=== PATIENT | female | born 1995 | race African-American/Black ===

== ENCOUNTER 2021-11-18 11:30 | Outpatient (RCR) | payer OTHER, SELFPAY ==
--- NOTE | 2021-10-27 11:13 | PTOPEVAL ---
PHYSICAL THERAPY EVALUATION AND PLAN OF CARE Thank you for referring Ladonna Jones to [facility].? The patient is scheduled to be seen for therapy? 2x/week for 4 weeks. Please review, sign, date and return this plan of care SENIA. I agree with and certify that the following plan of care is medically necessary. 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 Family She describes her story has having a difficult time exercising, having very little energy (could be lupus), she has a lot back of back pain ( stating that she has a upside down T - down the spine and across the bottom), and she has neuropathy in her left UE with a lot of numbness and tingling. back pain: sharp pains, burning especially when laying on her stomach -- has been trying to sleep on her sides. Self Report Pain Assessment Back Reported Pain Level 6 Pain Description Burning,Sharp Pain Frequency Chronic,Continuous Lowest Pain Intensity 6 Greatest Pain Intensity 9 Pain Aggravating Factors Walking,Weight Bearing/ Standing Pain Score Pain Score 6: Self Report Interventions Used Interventions Used By Clinicians Exercise,Manual Therapy Techniques Pain Relief Interventions Used By Inactivity/Rest Patient Cervical and Lumbar ROM Lumbar ROM Lumbar Flexion Active Ankle Query Text:Hands to: Lateral Rotation Right (0-45) 40 Query Text:Active in Degrees Lateral Rotation Left (0-45) 30 Query Text:Active in Degrees Lumbar Comments hinging at L1 in extension; more pain in low back with left rotation; Lower Extremity Range of Motion General Lower Extremity Range of Motion Gross Lower Extremity Range of Motion generally WFL; right hip Comments internal rotation limited compared to left Lower Extremity Muscle Strength
--- NOTE | 2021-11-01 14:16 | PCPTNOTE ---
Patient did not show up for scheduled appointment this date.
--- NOTE | 2021-11-03 12:32 | PCPTNOTE ---
Patient called & cancelled scheduled appointment this date due to son being in the hospital.
--- NOTE | 2021-11-10 11:14 | PCPTNOTE ---
Patient did not show up for scheduled appointment this date; poor weather conditions as well front end java developer called and left massages to inform us if she would arrive to scheduled appointment no call back.
--- NOTE | 2021-11-16 14:19 | PCPTNOTE ---
Patient arrived early at 13:00 for 13:45 scheduled appointment this date. Pt was informed she was early and her appointment time was 13:45. Upon appointment time 13:45, therapist was unable to find Pt. Therapist checked public restroom, Pt was no where to be found. Waited in lobby/waiting room area until 14:05, Pt did not show. Assumed Pt had left. Called and left voicemail for Pt about appointment and being unable to locate Pt. Reminded of upcoming appointment on 11/18/21 @ 11:30a.
--- NOTE | 2021-11-22 11:49 | PCPTNOTE ---
Patient did not show up for scheduled appointment this date.
--- NOTE | 2021-11-24 12:26 | PCPTNOTE ---
Patient did not show up for scheduled appointment this date.
--- NOTE | 2021-12-13 09:55 | PCPTNOTE ---
PHYSICAL THERAPY DISCHARGE NOTE Attending Provider: Dale Garcia MD Patient:Ladonna Jones Date of :1995 Patient has not returned for any further treatments since 11/18/2021, therefore (he/she) will be discharged at this time. Patient?s initial visit was on 10/27/2021 10:00 and (he/she) had a total of 2 visits with 4 no shows and 2 cancelled visits. Thank you for referring this patient to [facility]. Please review, sign, date and return this discharge summary SENIA. I have been updated about the patient's current status and I agree with discharge from the above service at this time. Referring Physician Date
== END 2021-12-13 15:38 | disposition home or self-care (01) ==
LOC: ANHPT 11:30
PROVIDERS: Visit Provider Obstetrics & Gynecology
DX: M99.05 Segmental and somatic dysfunction of pelvic region (principal)
CPT/HCPCS: 97110; 97140; 97162